=== PATIENT | male | born 2000 ===

== ENCOUNTER 2022-05-21 22:03 | Emergency (ER) | payer SELFPAY ==
[2022-05-21 23:28] LABS: Amorphous Crystals,Urine Few; Bacteria,Urine 1+ /HPF (Negative); Mucus,Urine 2+ /HPF
[2022-05-21 23:31] LABS: Color,Urine Yellow (Yellow)
--- NOTE | 2022-05-21 23:37 | XRay Report ---
CHEST 1 VIEW INDICATION / CLINICAL INFORMATION: AB PAIN. COMPARISON: None available. FINDINGS: SUPPORT DEVICES: None. HEART / MEDIASTINUM: Heart size is within normal limits. Mediastinal contour demonstrates no signific ant abnormality. LUNGS / PLEURA: Lungs are clear for degree of inspiration and technique utilized. BONES: No significant osseous abnormality. ADDITIONAL FINDINGS: No significant additional findings. IMPRESSION: 1. No active cardiopulmonary disease. Signer Name: Eric Rodas II, MD Signed: 05/21/2022 11:32 PM Workstation Name: [id number]
[2022-05-22 00:38] LABS: Basophils # (Auto) 0.1 K/mm3 (0.0-0.1); Basophils % (Auto) 0.7 % (0.0-1.8); Eosinophils # (Auto) 0.2 K/mm3 (0.0-0.4); Hematocrit 42.8 % (35.5-45.6); Hemoglobin 14.5 gm/dl (11.8-15.2); Lymphocytes # (Auto) 3.1 K/mm3 (1.2-5.4); Mean Corpuscular HGB Conc 34 % (32-34); Mean Corpuscular Volume 90 fl (84-94); Monocytes # (Auto) 0.7 K/mm3 (0.0-0.8); Monocytes % (Auto) 8.2 % (0.0-7.3); Platelet Count 294 K/mm3 (140-440); Red Blood Count 4.74 M/mm3 (3.65-5.03); Red Cell Distribution Width 13.2 % (13.2-15.2)
[2022-05-22] MEDS ORDERED: HYDROcodone/ACETAMINOPHEN 5-325 MG TAB PO ONE (03:49)
[2022-05-22 04:02] VITALS: BP 119/71
--- NOTE | 2022-05-22 04:34 | Emergency Department Report ---
ED General Adult HPI - General Chief complaint: Abdominal Pain Stated complaint: NAVEL PAIN Time Seen by Provider: 05/22/22 03:24 Source: patient Mode of arrival: Ambulatory Limitations: No Limitations - History of Present Illness Initial comments: 22 Y M with no PMH reports abdominal pain x 3 days with no N/V/D reported, no other acute symptoms reported. No decrease in eating or drinking reported. Severity scale (0 -10): 0 - Related Data Previous Rx's Medication Instructions Recorded Last Taken Type Ibuprofen [Motrin] 600 mg PO Q8H PRN 7 Days #21 tablet 05/22/22 Unknown Rx Allergies Allergy/AdvReac Type Severity Reaction Status Date / Time No Known Allergies Allergy Unverified 05/21/22 23:03 ED Review of Systems ROS: Stated complaint: NAVEL PAIN Other details as noted in HPI Comment: All other systems reviewed and negative Gastrointestinal: abdominal pain. denies: nausea, vomiting, diarrhea ED Past Medical Hx - Past Medical History Previous Medical History?: No - Social History Smoking Status: Never Smoker Substance Use Type: Alcohol - Medications Home Medications: Home Medications Medication Instructions Recorded Confirmed Last Taken Type Ibuprofen [Motrin] 600 mg PO Q8H PRN 7 Days #21 tablet 05/22/22 Unknown Rx ED Physical Exam - General Limitations: No Limitations General appearance: alert, in no apparent distress - Head Head exam: Present: atraumatic, normocephalic - Eye Eye exam: Present: normal appearance - ENT ENT exam: Present: mucous membranes moist - Neck Neck exam: Present: normal inspection - Respiratory Respiratory exam: Present: normal lung sounds bilaterally. Absent: respiratory distress - Cardiovascular Cardiovascular Exam: Present: regular rate, normal rhythm. Absent: systolic murmur, diastolic murmur, rubs, gallop - GI/Abdominal GI/Abdominal exam: Present: soft, tenderness, normal bowel sounds. Absent: distended, guarding, rebound, rigid - Rectal Rectal exam: Present: deferred - Extremities Exam Extremities exam: Present: normal inspection - Back Exam Back exam: Present: normal inspection - Neurological Exam Neurological exam: Present: alert, oriented X3 - Psychiatric Psychiatric exam: Present: normal affect, normal mood - Skin Skin exam: Present: warm, dry, intact, normal color. Absent: rash ED Course Vital Signs 05/21/22 05/22/22 23:00 04:02 Temperature 98.6 F Pulse Rate 58 L 60 Respiratory 18 16 Rate Blood Pressure 120/74 Blood Pressure 119/71 [Left] O2 Sat by Pulse 100 100 Oximetry ED Medical Decision Making - Lab Data Result diagrams: 05/22/22 00:00 05/22/22 04:16 - Radiology Data Radiology results: report reviewed, image reviewed [facility] [address] [place] [address] XRay Report Signed with Addenda Patient: HERMELINDO BAEZ MR#: [id number] : 2000 Acct:[id number] Age/Sex: 22 / M ADM Date: 05/21/22 Loc: ED Attending Dr: Ordering Physician: DANIEL SAINZ MD Date of Service: 05/21/22 Procedure(s): XR abdomen 2V Accession Number(s): [id number] cc: DANIEL SAINZ MD Fluoro Time In Minutes: ADDENDUM ABDOMEN 2 VIEWS INDICATION / CLINICAL INFORMATION: Abdominal Pain. COMPARISON: None available. FINDINGS: TUBES / LINES: None. BOWEL GAS PATTERN: No significant abnormality. FREE AIR / EXTRALUMINAL GAS: None seen. ADDITIONAL FINDINGS: No significant additional findings. CHEST: Visualized chest shows no significant abnormality. IMPRESSION: 1. No significant abnormality. Disregard the prior report for chest x-ray. Incorrect template loaded. Signer Name: Jaylon Gutiérrez II, MD Signed: 05/22/2022 4:21 AM Workstation Name: [id number] Addendum Transcribed By: CIERA Addendum Dictated By: JAYLON GUTIÉRREZ II, MD Addendum Electronically Authenticated By: JAYLON GUTIÉRREZ II, MD Addendum Signed Date/Time: 05/22/22420 DD/ /02/420 TD/TT: / CHEST 1 VIEW : - Medical Decision Making 22 Y M with abdominal pain to umbilical area for 3 days with no N/V/D. On physical exam no acute abdominal signs noted. No rebound tenderness. Tenderness noted umbilicus area. No hernia noted. Vital signs stable. KUB abdomen no acute process noted. labs are unremarkable. Patient reports a decrease in pain. No further work-up is needed . Patient informed that he does not have a hernia at this moment as there was patient's main concern for visit in the ER today. Patient is stable for discharge home. Patient informed to follow his primary care provider as needed. Patient informed symptoms are to return to report back to the ER. Vital Signs 05/21/22 05/22/22 23:00 04:02 Temperature 98.6 F Pulse Rate 58 L 60 Respiratory 18 16 Rate Blood Pressure 120/74 Blood Pressure 119/71 [Left] O2 Sat by Pulse 100 100 Oximetry Lab Results 05/21/22 05/22/22 05/22/22 Range/Units Unknown 00:00 04:16 WBC 8.9 (4.5-11.0) K/mm3 RBC 4.74 (3.65-5.03) M/mm3 Hgb 14.5 (11.8-15.2) gm/dl Hct 42.8 (35.5-45.6) % MCV 90 (84-94) fl MCH 31 (28-32) pg MCHC 34 (32-34) % RDW 13.2 (13.2-15.2) % Plt Count 294 (140-440) K/mm3 Lymph % (Auto) 35.0 (13.4-35.0) % [place] % (Auto) 8.2 H (0.0-7.3) % Eos % (Auto) 2.0 (0.0-4.3) % Baso % (Auto) 0.7 (0.0-1.8) % Lymph # (Auto) 3.1 (1.2-5.4) K/mm3 [place] # (Auto) 0.7 (0.0-0.8) K/mm3 Eos # (Auto) 0.2 (0.0-0.4) K/mm3 Baso # (Auto) 0.1 (0.0-0.1) K/mm3 Seg Neutrophils % 54.1 (40.0-70.0) % Seg Neutrophils # 4.8 (1.8-7.7) K/mm3 Sodium 137 (137-145) mmol/L Potassium 4.5 (3.6-5.0) mmol/L Chloride 100.3 (98-107) mmol/L Carbon Dioxide 26 (22-30) mmol/L Anion Gap 15 mmol/L BUN 13 (9-20) mg/dL Creatinine 0.8 (0.8-1.3) mg/dL Estimated GFR > 60 ml/min BUN/Creatinine Ratio 16 % Glucose 72 L (75-100) mg/dL Calcium 9.7 (8.4-10.2) mg/dL Urine Color Yellow (Yellow) Urine Turbidity Slightly cloudy (Clear) Specific [place] (Man) 1.030 (1.003-1.030) Ur Protein (Man) 1+ (Negative) mg/dL Ur Ketones (Man) Negative (Negative) Ur Nitrite (Man) Negative (Negative) Ur Reducing Substances Not Reportable Urine Bilirubin (Man) Negative (Negative) Urine Ictotest Not Reportable Leukocyte Esterase (Man) Negative (Negative) Urine WBC (Auto) 5.0 (0.0-6.0) /HPF Urine RBC (Auto) 4.0 (0.0-6.0) /HPF Urine Bacteria (Auto) 1+ (Negative) /HPF Urine RBC (Manual) Negative (Negative) Amorphous Crystals Few Urine Mucus 2+ /HPF Critical care attestation.: If time is entered above; I have spent that time in minutes in the direct care of this critically ill patient, excluding procedure time. ED Disposition Clinical Impression: Abdominal pain Qualifiers: Abdominal location: periumbilical Qualified Code(s): R10.33 - Periumbilical pain Disposition: 01 HOME / SELF CARE / HOMELESS Is pt being admited?: No Condition: Stable Instructions: Abdominal Pain, Adult, [id number] Prescriptions: Ibuprofen [Motrin] 600 mg PO Q8H PRN 7 Days #21 tablet PRN Reason: Pain Referrals: NYA BERMEO MD [Primary Care Provider] - 3-5 Days
[2022-05-22 04:56] LABS: BUN/Creatinine Ratio 16; Blood Urea Nitrogen 13 mg/dL (9-20); Calcium 9.7 mg/dL (8.4-10.2); Hemolysis Index 3
== END 2022-05-22 06:47 | disposition home or self-care (01) ==
LOC: ED 22:03
DX: R10.9 Unspecified abdominal pain (principal); F10.20 Alcohol dependence, uncomplicated
CPT/HCPCS: 36415; 74019; 80048; 81001; 85025; 99284